=== PATIENT | male | born 1955 | race Caucasian/White ===

== ENCOUNTER 2019-03-16 18:32 | Emergency (ER) | payer BC ==
[2019-03-16 18:46] VITALS: BP 162/81; PULSE 75
[2019-03-16] MEDS ORDERED: Bacitracin Oint 1 GM U/D Packet TOP ONE (19:15)
[2019-03-16] MEDS ORDERED: Lidocaine 1% 30 ML SDV INJECT ONE (19:15)
--- NOTE | 2019-03-16 19:22 | EDM.PDOC ---
ED HPI GENERAL MEDICAL PROBLEM - General Chief Complaint: Laceration Stated Complaint: RIGHT HAND INDEX AND THUMB CUT Time Seen by Provider: 03/16/19 18:50 Source of Information: Reports: Patient History Limitations: Reports: No Limitations - History of Present Illness INITIAL COMMENTS - FREE TEXT/NARRATIVE: ED with c/o laceration to right finger and thumb. Using chop saw and saw shut off but blade not stopped and reached near saw blade. . Tetnus vaccination in 2012. Onset: Today Right Finger-Index Pain Score (Numeric/FACES): 1 - Related Data Allergies Allergy/AdvReac Type Severity Reaction Status Date / Time tramadol Allergy Cannot Verified 03/16/19 18:39 Remember acetaminophen [From Percocet] AdvReac Nausea and Verified 03/16/19 18:39 Vomiting oxycodone AdvReac Nausea and Verified 03/16/19 18:39 Vomiting Home Meds: Home Meds Calcitonin,[place],Synthetic [Miacalcin] 1 spray MADIE DAILY 05/22/16 [History] Calcium Carbonate/Vitamin D3 [Os-Bob 500+D] 1 tab PO DAILY 05/22/16 [History] Levothyroxine Sodium 75 mcg PO DAILY 05/22/16 [History] atorvaSTATin Calcium [Atorvastatin Calcium] 20 mg PO DAILY 05/22/16 [History] Past Medical History Cardiovascular History: Reports: High Cholesterol Musculoskeletal History: Reports: Other (See Below) Other Musculoskeletal History: CHONDROMALACIA OF RIGHT KNEE Endocrine/Metabolic History: Reports: Hypothyroidism, Obesity/BMI 30+ Dermatologic History: Reports: Other (See Below) Other Dermatologic History: HX OF HERPES ZOSTER - Past Surgical History Neurological Surgical History: Reports: C-Spine Musculoskeletal Surgical History: Reports: Arthroscopic Knee Dermatological Surgical History: Reports: Other (See Below) Social & Family History - Family History Family Medical History: Noncontributory - Tobacco Use Smoking Status *Q: Never Smoker Second Hand Smoke Exposure: No - Caffeine Use Caffeine Use: Reports: Coffee - Recreational Drug Use Recreational Drug Use: No ED ROS GENERAL - Review of Systems Review Of Systems: ROS reveals no pertinent complaints other than HPI. ED EXAM, SKIN/RASH Exam: See Below Exam Limited By: No Limitations General Appearance: Alert, Mild Distress Eye Exam: Bilateral Eye: EOMI Ears: Normal External Exam Throat/Mouth: Normal Voice Head: Atraumatic, Normocephalic Neck: Full Range of Motion Respiratory/Chest: No Respiratory Distress, Normal Breath Sounds Cardiovascular: Normal Peripheral Pulses, Regular Rate, Rhythm Neurological: Alert, Oriented Psychiatric: Normal Affect, Normal Mood Skin: Warm, Dry, Wound/Incision (laceration lateral right index finger 2cm. , right medial thumb distal 5mm superficial flap ) Location, Skin: Upper Extremity, Right Associated features: Tenderness ED SKIN PROCEDURES - Laceration/Wound Repair Right Digit - 2nd (Index) Appearance: Superficial Distal NVT: Neuro & Vascular Intact Anesthetic Type: Local Local Anesthesia - Lidocaine (Xylocaine): 1% Plain Local Anesthetic Volume: 2cc Skin Prep: Chlorhexidine (Hibiciens), Saline Saline Irrigation (cc's): 50 Closed with: Sutures Lac/Wound length In cm: 0.5 Suture Size: 4-0 # of Sutures: 4 Suture Type: Nylon, Interrupted Drain Placement: No Sterile Dressing Applied: Nurse Tetanus Status Addressed: Yes Complications: No Course - Vital Signs Last Recorded V/S: Last Vital Signs Temp 98.2 F 03/16/19 18:40 Pulse 75 03/16/19 18:40 Resp 16 03/16/19 18:40 BP 162/81 H 03/16/19 18:40 Pulse Ox 98 03/16/19 18:40 - Orders/Labs/Meds Meds: Medications Discontinued Medications Generic Name Dose Route Start Last Admin Trade Name Cheryl PRN Reason Stop Dose Admin Bacitracin 1 dose 03/16/19 19:15 03/16/19 20:47 Bacitracin Oint 1 Gm TOP 03/16/19 19:16 1 dose ONETIME ONE Administration Cephalexin 500 mg 03/16/19 20:57 03/16/19 21:03 Keflex PO 03/16/19 20:58 500 mg ONETIME ONE Administration Lidocaine HCl 30 ml 03/16/19 19:15 03/16/19 20:20 Xylocaine-Mpf 1% INJECT 03/16/19 19:16 30 ml ONETIME ONE Administration - Radiology Interpretation Free Text/Narrative:: xray left index finger negative for fracture, see report Departure - Departure Time of Disposition: 20:58 Disposition: Home, Self-Care 01 Condition: Good Clinical Impression: Laceration - Discharge Information *PRESCRIPTION DRUG MONITORING PROGRAM REVIEWED*: No *COPY OF PRESCRIPTION DRUG MONITORING REPORT IN PATIENT HENRY: No Instructions: Laceration Care, Adult, [id number], Stitches, Rodri, or Adhesive Wound Closure, [id number] Referrals: Renzo Goodwin MD [Primary Care Provider] - Forms: ED Department Discharge Additional Instructions: elevate extremity tylenol or ibuprofe, may alternate every 4 hours as needed for discomfort sutures out 10-14 days keflex 500mg one three times daily follow up if increased swelling redness or drainage wash twice daily with soap and water keep covered with non adherent dressing
[2019-03-16] MEDS ORDERED: Cephalexin 500 MG Cap PO ONE (20:57)
== END 2019-03-16 21:05 | disposition home or self-care (01) ==
LOC: DL.ED 18:32
DX: S61.210A Laceration without foreign body of right index finger without damage to nail, initial encounter (principal); S61.011A Laceration without foreign body of right thumb without damage to nail, initial encounter; E66.9 Obesity, unspecified; E03.9 Hypothyroidism, unspecified; E78.00 Pure hypercholesterolemia, unspecified; Z88.6 Allergy status to analgesic agent; Z88.5 Allergy status to narcotic agent; Z68.30 Body mass index [BMI] 30.0-30.9, adult; Z79.84 Long term (current) use of oral hypoglycemic drugs; Z79.899 Other long term (current) drug therapy; W31.2XXA Contact with powered woodworking and forming machines, initial encounter
CPT/HCPCS: 12001; 73140; 99282; A9270; J2001; 12002

== ENCOUNTER 2019-08-10 05:32 | Day surgery (SDC) | payer BC ==
[2019-08-10] MEDS ORDERED: Midazolam 1 MG/ML 2 ML SDV IV ONE ×7 (05:33→06:30)
[2019-08-10] MEDS ORDERED: fentaNYL 100 MCG/2 ML SDV IV ONE ×5 (05:33→06:31)
[2019-08-10] MEDS ORDERED: Sodium Chloride 0.9% 10 ML Syringe FLUSH PRN (06:00)
[2019-08-10] MEDS ORDERED: Dextrose 5%-0.45% NaCl 1,000 ML IV SCH (06:00)
[2019-08-10] MEDS ORDERED: fentaNYL 100 MCG/2 ML SDV ONE (06:04)
[2019-08-10] MEDS ORDERED: Midazolam 1 MG/ML 2 ML SDV ONE (06:04)
[2019-08-10 08:58] VITALS: BP 129/76; PULSE 65
--- NOTE | 2019-08-10 09:01 | OR ---
DATE: 08/10/2019 PROCEDURE: Total colonoscopy. INSTRUMENT USED: [id number] Olympus video colonoscope. PREMEDICATIONS: Fentanyl 150 mcg intravenous, Versed 4 mg intravenous. The procedure was done under pulse oximetry, BP recording, and radiation monitor. INDICATION: The patient with positive SIT. Colonoscopic examination is done for detection of any polypoid lesions and removal, endoscopic hemostasis therapy if needed. DESCRIPTION OF PROCEDURE: Initial rectal exam was unremarkable. Rigid anoscopy showed small internal hemorrhoids without bleeding from them. The colonoscope was passed with ease up to the ileocecal area. Photographs were taken of the normal-appearing cecum identified by landmarks of appendiceal orifice and double- bulged ileocecal folds. No bleeding was noted from any of the visualized areas at the commencement of the examination. Bowel preparation was found to be adequate, Vernon scale 2 in right and left colon, scale 3 in transverse colon, total score 7. No stricture. No vascular ectasia. No large isolated ulcerations seen. No evidence of diffuse inflammatory bowel disease in the form of friability, contact bleeding, or ulcerations. No polyp or tumor mass identified. Probing the proximal sides of folds and flexures using adequate distention and clearing up the stool material, withdrawal of the scope was made, cecum to rectum time over 6 minutes. No bleeding was noted from any of the visualized areas at the completion of the examination. IMPRESSION: Internal hemorrhoids. The patient tolerated the procedure well. [facility] /[id number]
== END 2019-08-10 08:37 | disposition home or self-care (01) ==
LOC: DL.ENDO 05:32
PROVIDERS: ATTEND Internal Medicine Gastroenterology
DX: K64.8 Other hemorrhoids (principal); N50.82 Scrotal pain; E78.00 Pure hypercholesterolemia, unspecified; N50.3 Cyst of epididymis; M25.50 Pain in unspecified joint; M19.90 Unspecified osteoarthritis, unspecified site; E03.9 Hypothyroidism, unspecified; E72.51 Non-ketotic hyperglycinemia; Z98.890 Other specified postprocedural states; Z88.5 Allergy status to narcotic agent
CPT/HCPCS: 45378; J2250; J3010; J7042; G0121

== ENCOUNTER 2020-02-01 10:57 | Emergency (ER) | payer OTHER, BC ==
[2020-02-01 11:15] VITALS: BP 150/84; PULSE 67
--- NOTE | 2020-02-01 11:19 | EDM.PDOC ---
ED HPI GENERAL MEDICAL PROBLEM - General Chief Complaint: Laceration Stated Complaint: LEFT HAND PINKY FINGER LACERATION Time Seen by Provider: 02/01/20 11:19 Source of Information: Reports: Patient, RN, RN Notes Reviewed History Limitations: Reports: No Limitations - History of Present Illness INITIAL COMMENTS - FREE TEXT/NARRATIVE: Pt was cutting telephone cable and finger was caught on metal cable with laceration obtained to left 5th finger. Denies any other injury. Tetanus vaccine give 6yrs ago per pt. Onset: Today, Sudden Duration: Constant Location: Reports: Upper Extremity, Left Quality: Reports: Ache Severity: Mild Improves with: Reports: None Worsens with: Reports: None Left Finger-Little Pain Score (Numeric/FACES): 1 - Related Data Allergies Allergy/AdvReac Type Severity Reaction Status Date / Time acetaminophen [From Percocet] AdvReac Nausea and Verified 02/01/20 11:17 Vomiting atorvastatin [From Lipitor] AdvReac Muscle Verified 02/01/20 11:17 Aches oxycodone AdvReac Nausea and Verified 02/01/20 11:17 Vomiting tramadol AdvReac Nausea and Verified 02/01/20 11:17 Vomiting Home Meds: Home Meds Levothyroxine Sodium 75 mcg PO DAILY 05/22/16 [History] Acetaminophen 650 mg PO ASDIRECTED 08/09/19 [History] Pravastatin Sodium [Pravastatin (Pravachol)] 40 mg PO .EVENING 08/09/19 [History] Krill/Cobb-3/Dha/Epa/Lipids [Cobb-3 Krill Oil 500 mg Sfgl] 500 mg PO DAILY 08/10/19 [History] Past Medical History HEENT History: Reports: Glaucoma, Impaired Vision Cardiovascular History: Reports: Heart Murmur, High Cholesterol Respiratory History: Reports: None Gastrointestinal History: Reports: None Genitourinary History: Reports: None Musculoskeletal History: Reports: Arthritis, Other (See Below) Other Musculoskeletal History: CHONDROMALACIA OF RIGHT KNEE Neurological History: Reports: None Psychiatric History: Reports: None Endocrine/Metabolic History: Reports: Hypothyroidism, Obesity/BMI 30+ Hematologic History: Reports: None Immunologic History: Reports: None Oncologic (Cancer) History: Reports: None Dermatologic History: Reports: Other (See Below) Other Dermatologic History: HX OF HERPES ZOSTER - Infectious Disease History Infectious Disease History: Reports: Chicken Pox, Measles, Mumps - Past Surgical History Head Surgeries/Procedures: Reports: None HEENT Surgical History: Reports: None Cardiovascular Surgical History: Reports: None Respiratory Surgical History: Reports: None GI Surgical History: Reports: None Male Surgical History: Reports: None Neurological Surgical History: Reports: C-Spine Musculoskeletal Surgical History: Reports: Arthroscopic Knee Oncologic Surgical History: Reports: None Dermatological Surgical History: Reports: Other (See Below) Social & Family History - Family History Family Medical History: Noncontributory - Caffeine Use Caffeine Use: Reports: Coffee Other Caffeine Use: COFFEE DAILY - Living Situation & Occupation Occupation: Employed ED ROS GENERAL - Review of Systems Review Of Systems: Comprehensive ROS is negative, except as noted in HPI. ED EXAM, SKIN/RASH Exam: See Below Exam Limited By: No Limitations General Appearance: Alert, WD/WN, No Apparent Distress Respiratory/Chest: No Respiratory Distress Cardiovascular: Normal Peripheral Pulses Extremities: Normal Range of Motion, Normal Capillary Refill, Other (1.25cm laceration to depth of subcutaneous tissue at left distal 5th finger pad, no active bleeding, no FB.) Neurological: Alert, Oriented, No Motor/Sensory Deficits Psychiatric: Normal Mood ED SKIN PROCEDURES - Laceration/Wound Repair Left Distal Ventral Digit - 5th (Baby) Appearance: Subcutaneous, Linear Distal NVT: Neuro & Vascular Intact, No Tendon Injury Anesthetic Type: Local Local Anesthesia - Lidocaine (Xylocaine): 1% Plain Local Anesthetic Volume: 3cc Skin Prep: Chlorhexidine (Hibiciens), Saline, Sterile Drape Saline Irrigation (cc's): 500 Exploration/Debridement/Repair: Wound Explored, In a Bloodless Field, Explored to Base, Minimal Debridement, Minimally Undermined Closed with: Sutures Lac/Wound length In cm: 1.3 Suture Size: 4-0 # of Sutures: 4 Suture Type: Nylon, Interrupted Drain Placement: No Sterile Dressing Applied: Nurse Tetanus Status Addressed: Yes Complications: No Course - Vital Signs Last Recorded V/S: Last Vital Signs Temp 97.8 F 02/01/20 11:14 Pulse 67 02/01/20 11:14 Resp 16 02/01/20 11:14 BP 150/84 H 02/01/20 11:14 Pulse Ox 100 02/01/20 11:14 - Orders/Labs/Meds Orders: Active Orders 24 hr Category Date Time Status Bacitracin [Bacitracin Oint 1 GM] Med 02/01/20 11:21 Once 1 dose TOP ONETIME ONE Lidocaine 1% [Xylocaine-MPF 1%] Med 02/01/20 11:21 Once 30 ml INJECT ONETIME ONE Departure - Departure Time of Disposition: 12:00 Disposition: Home, Self-Care 01 Condition: Good Clinical Impression: Laceration of left little finger w/o foreign body w/o damage to nail Qualifiers: Encounter type: initial encounter Qualified Code(s): S61.217A - Laceration without foreign body of left little finger without damage to nail, initial encounter - Discharge Information *PRESCRIPTION DRUG MONITORING PROGRAM REVIEWED*: Not Applicable *COPY OF PRESCRIPTION DRUG MONITORING REPORT IN PATIENT HENRY: Not Applicable Instructions: Laceration Care, Adult, [id number] Forms: ED Department Discharge Additional Instructions: Follow up in clinic for suture removal in 7 to 10 days. Sepsis Event Note (ED) - Evaluation Sepsis Screening Result: No Definite Risk - Focused Exam Vital Signs: Vital Signs Temp Pulse Resp BP Pulse Ox 02/01/20 11:14 97.8 F 67 16 150/84 H 100 - My Orders Last 24 Hours: My Active Orders 02/01/20 11:21 Bacitracin [Bacitracin Oint 1 GM] 1 dose TOP ONETIME ONE Lidocaine 1% [Xylocaine-MPF 1%] 30 ml INJECT ONETIME ONE - Assessment/Plan Last 24 Hours: My Active Orders 02/01/20 11:21 Bacitracin [Bacitracin Oint 1 GM] 1 dose TOP ONETIME ONE Lidocaine 1% [Xylocaine-MPF 1%] 30 ml INJECT ONETIME ONE
[2020-02-01] MEDS ORDERED: Lidocaine 1% 30 ML SDV INJECT ONE (11:21)
[2020-02-01] MEDS ORDERED: Bacitracin Oint 1 GM U/D Packet TOP ONE (11:21)
== END 2020-02-01 11:55 | disposition home or self-care (01) ==
LOC: DL.ED 10:57
DX: S61.217A Laceration without foreign body of left little finger without damage to nail, initial encounter (principal); E03.9 Hypothyroidism, unspecified; E66.9 Obesity, unspecified; Z68.31 Body mass index [BMI] 31.0-31.9, adult; Z88.5 Allergy status to narcotic agent; Z88.6 Allergy status to analgesic agent; Z88.8 Allergy status to other drugs, medicaments and biological substances; Z79.899 Other long term (current) drug therapy; W23.0XXA Caught, crushed, jammed, or pinched between moving objects, initial encounter
CPT/HCPCS: 12001; 99282; J2001